=== PATIENT | male | born 1985 | race Caucasian/White ===

== ENCOUNTER 2019-11-13 21:34 | Emergency (ER) | payer MEDICARE ==
[~2019-11-13] VITALS: Ht 170.2 cm; Wt 121.1 kg
[2019-11-13] MEDS ORDERED: ADDERALL 20 MG20 MG PO (21:45)
[2019-11-13] MEDS ORDERED: SINGULAIR10 MG PO (21:45)
[2019-11-13] MEDS ORDERED: NORCO 5-325 TA1 EACH PO (23:00)
[2019-11-13] MEDS ORDERED: KEFLEX500 MG PO (23:00)
== END 2019-11-13 23:27 | disposition home or self-care (01) ==
LOC: ED 21:34
PROC: 0JCK0ZZ Extirpation of Matter from Left Hand Subcutaneous Tissue and Fascia, Open Approach (ICD-10-PCS; principal; 2019-11-13)
DX: S60.352A Superficial foreign body of left thumb, initial encounter (principal); Z23 Encounter for immunization; W45.8XXA Other foreign body or object entering through skin, initial encounter
CPT/HCPCS: 10120; 90471; 90715; 99283-25